=== PATIENT | male | born 1995 | race Caucasian/White ===

== ENCOUNTER 2024-11-02 12:29 | Emergency (ER) | payer MEDICARE, MEDICAID ==
[~2024-11-02] VITALS: Ht 175.3 cm; Wt 55.0 kg
[2024-11-02 12:32] VITALS: BP 136/85; TEMP 99.2; O2SAT 98
[2024-11-02] MEDS ORDERED: CLON0.2T (12:38)
[2024-11-02] MEDS ORDERED: BUPR75TA5 (12:38)
[2024-11-02] MEDS: CLINDAMYCIN 150 MG CAPSULE PO ONE (13:01)
[2024-11-02] MEDS ORDERED: CLEO300C2 PO (13:01)
== END 2024-11-02 13:17 | disposition home or self-care (01) ==
LOC: M ED 12:29
DX: K12.2 Cellulitis and abscess of mouth (principal); Z79.2 Long term (current) use of antibiotics; Z79.899 Other long term (current) drug therapy

== ENCOUNTER 2024-11-08 15:48 | Emergency (ER) | payer MEDICARE, MEDICAID ==
[~2024-11-08] VITALS: Ht 177.8 cm; Wt 53.4 kg
[~2024-11-08 15:48] MED LIST: BUPR75TA5 PO; CLEO300C2 PO; CLON0.2T
[2024-11-08 18:29] LABS: BASO # 0.1 10^3/uL (0.0-0.2); BASO % 0.5 % (0.0-1.0); EOS # 0.2 10^3/uL (0.0-0.5); EOS % 1.6 % (0.0-3.0); LYMPH # 1.6 10^3/uL (1.5-5.0); LYMPH % 12.1 % (24.0-44.0); MONO # 0.9 10^3/uL (0.0-0.8); MONO % 6.8 % (2.0-8.0); NEUTROPHILS # 10.3 10^3/uL (1.5-8.5); NEUTROPHILS % 78.7 % (36.0-66.0); PLATELET COUNT, AUTOMATED 430 10^3/uL (150-450)
[2024-11-08 18:35] LABS: ERYTHROCYTE SEDIMENTATION RATE 39 mm/hr (0-15)
[2024-11-08 18:41] LABS: INR 1.05
[2024-11-08 19:09] LABS: C REACTIVE PROTEIN QUANTITATIV 4.02 MG/DL (<1.0)
[2024-11-08 19:10] LABS: ALT/SGPT 15 U/L (7.0-40); AST/SGOT 16 U/L (<34); CALCIUM LEVEL 8.9 MG/DL (8.5-10.1); CARBON DIOXIDE LEVEL 29 MMOL/L (20-31); CHLORIDE LEVEL 104 MMOL/L (98-107); CREATININE FOR GFR 0.86 MG/DL (0.70-1.30); GLOMERULAR FILTRATION RATE > 90.0 (>60); POTASSIUM SERUM 4.4 MMOL/L (3.5-5.1); SODIUM LEVEL 143 MMOL/L (136-145)
[2024-11-08] MEDS: AMPICILLIN SOD/SULBACTAM SOD 3 GM in DEXTROSE 5% (D5W) MINI-BAG PLU 100 ML IV ONE (19:48)
[2024-11-08] MEDS ORDERED: ACETAMINOPHEN 325 MG TAB PO PRN (21:00)
[2024-11-09] MEDS: NS (Normal Saline) 0.9% 1,000 ML IV ONE (00:15)
[2024-11-09] MEDS: PANTOPRAZOLE 40MG TAB PO SCH (00:15)
[2024-11-09] MEDS: KETOROLAC 30 MG/ML 1 ML VIAL IV PRN (00:16)
[2024-11-09] MEDS: AMPICILLIN SOD/SULBACTAM SOD 3 GM in DEXTROSE 5% (D5W) MINI-BAG PLU 100 ML IV SCH (02:56)
[2024-11-09] MEDS ORDERED: CLEO300C2 PO (09:09)
[2024-11-09] MEDS ORDERED: HOME MED LIST COMPLETE! XX SCH (09:10)
[2024-11-09] MEDS ORDERED: LISD50CA PO (09:13)
[2024-11-09 10:54] VITALS: BP 102/59; TEMP 96.9
[2024-11-09 11:09] VITALS: O2SAT 98
== END 2024-11-09 11:30 | disposition short-term general hospital (02) ==
LOC: M ED 15:48
DX: K04.7 Periapical abscess without sinus (principal); Z79.2 Long term (current) use of antibiotics; Z79.899 Other long term (current) drug therapy
CPT/HCPCS: 36415; 80048; 80076; 83605; 84145; 85025; 85610; 85652; 85730; 86140; 87040; 87070; 87077; 87186; 87205; 93041; 94760; 96365; 96366; 96375; 99285; J0295; J1885